=== PATIENT | male | born 1940 | race Caucasian/White ===

== ENCOUNTER 2017-10-14 05:22 | Emergency (ER) | payer OTHER ==
[~2017-10-14] VITALS: Ht 170.2 cm; Wt 88.5 kg
[2017-10-14 05:27] VITALS: BP_SYST 192
[2017-10-14] MEDS ORDERED: LIDOCAINE VISCOUS 2%, 15 ML UDC ONE (05:47)
[2017-10-14] MEDS ORDERED: LIDOCAINE VISCOUS 2%, 15 ML UDC MM ONE (06:45)
[2017-10-14 07:55] VITALS: BP_SYST 125
== END 2017-10-14 07:55 | disposition home or self-care (01) ==
LOC: SED 05:22
DX: N99.81 Other intraoperative complications of genitourinary system (principal)
CPT/HCPCS: 51702; 99284; J2001

== ENCOUNTER 2020-05-05 10:03 | Outpatient (CLI) | payer OTHER ==
[2020-05-05] MEDS ORDERED: BARIUM SULFATE 135 ML SUSP.RECON (E-Z-HD) PO ONE (11:04)
== END 2020-05-05 21:35 | disposition home or self-care (01) ==
LOC: SRD 10:03
DX: R13.10 Dysphagia, unspecified (principal)
CPT/HCPCS: 74220-TC

== ENCOUNTER 2022-12-28 08:42 | Inpatient (IN) | payer OTHER ==
[~2022-12-28] VITALS: Ht 165.1 cm; Wt 81.6 kg
[2022-12-28 08:45] VITALS: BP_SYST 118
[2022-12-28] MEDS ORDERED: cefTRIAXone 1 GM IVPB PREMIX 50 ML IV ONE (09:45)
[2022-12-28] MEDS ORDERED: NACL 0.9% 1,000 ML IV ONE ×2 (09:45→13:30)
[2022-12-28] MEDS ORDERED: ACETAMINOPHEN 500 MG TABLET PO ONE (09:45)
[2022-12-28 09:50] LABS: BILIRUBIN,URINE NEGATIVE (NEGATIVE); BLOOD, URINE 1+ (NEGATIVE); COLOR,URINE YELLOW (YELLOW); GLUCOSE,URINE NEGATIVE (NEGATIVE); KETONES,URINE NEGATIVE (NEGATIVE); LEUKOCYTE ESTERASE ,URINE TRACE (NEGATIVE); NITRITE, URINE NEGATIVE (NEGATIVE); PROTEIN URINE NEGATIVE (NEGATIVE); UROBILINOGEN,URINE 0.2 (0.2-1.0)
[2022-12-28 09:55] LABS: CLARITY/URINE SLIGHTLY HAZY (CLEAR)
[2022-12-28 09:58] LABS: BACTERIA,URINE FEW /HPF (None Seen); WBC,URINE 0-3 /HPF (0-3)
[2022-12-28 10:00] LABS: BASOPHILS % (AUTO) 0.2 % (0.0-2.0); HEMATOCRIT 42.2 % (36-54); LYMPHOCYTES # (AUTO) 0.5 K/uL (1.0-5.5); MEAN CORPUSCULAR HEMOGLOBIN 30 pg (27-31); MEAN CORPUSCULAR HGB CONC 33 % (32-36); MEAN CORPUSCULAR VOLUME 90 fL (79.0-98.0); MONOCYTES # (AUTO) 0.8 K/uL (0.0-1.0); MONOCYTES % (AUTO) 6.7 % (1.7-9.3); NEUTROPHILS # (AUTO) 10.5 K/uL (1.8-7.7); NEUTROPHILS % (AUTO) 89.1 % (40.0-70.0); PLATELET COUNT (AUTO) 158 K/uL (130-430); RED BLOOD CELL COUNT(AUTO) 4.72 MIL/uL (4.2-6.2); RED CELL DISTRIBUTION WIDTH 15.1 % (9.0-15.0); WHITE BLOOD COUNT (AUTO) 11.8 K/uL (4.8-10.8)
[2022-12-28 10:18] LABS: ANION GAP 9 (5-15); CALCIUM 8.9 mg/dL (8.4-11.0); CHLORIDE 99 mmol/L (98-107); CREATININE 1.18 mg/dL (0.55-1.30); GLUCOSE 106 mg/dL (70-99); UREA NITROGEN, BLOOD 24 mg/dL (8-21)
[2022-12-28 10:24] LABS: ALANINE AMINOTRANSFERASE 14 U/L (12-78); ALBUMIN 3.6 g/dL (3.4-4.8); ASPARTATE AMINOTRANSFERASE 18 U/L (10-37); TOTAL BILIRUBIN 1.2 mg/dL (0.0-1.0)
[2022-12-28] MEDS ORDERED: ASPI-1155 PO (10:25)
[2022-12-28] MEDS ORDERED: LOSA1TAB40 PO (10:25)
[2022-12-28] MEDS ORDERED: ACETAMINOPHEN 500 MG TABLET PO PRN (14:15)
[2022-12-28] MEDS ORDERED: D5/0.45 NS 1,000 ML IV ONE (14:15)
[2022-12-28 16:00] VITALS: BP_SYST 125
[2022-12-28] MEDS ORDERED: ACETAMINOPHEN 325 MG TABLET PO PRN (16:15)
[2022-12-28] MEDS: ACETAMINOPHEN 325 MG TABLET PO PRN ×2 (16:19→22:05)
[2022-12-28] MEDS: NACL 0.9% 1,000 ML IV SCH (16:21)
[2022-12-28 20:37] VITALS: BP_SYST 163
[2022-12-28 20:42] VITALS: BP_SYST 133
[2022-12-28] MEDS ORDERED: LOSARTAN/HYDROCHLOROTHIAZIDE TAB (HYZAAR 50-12.5 MG) PO ONE (22:30)
[2022-12-28] MEDS ORDERED: LOSARTAN POTASSIUM 50 MG TABLET (COZAAR) PO ONE (22:45)
[2022-12-28] MEDS ORDERED: HYDROCHLOROTHIAZIDE 12.5 MG CAPSULE (HCTZ) PO ONE (22:45)
[2022-12-29 00:27] VITALS: BP_SYST 150
[2022-12-29] MEDS: NACL 0.9% 1,000 ML IV SCH ×3 (02:20→22:15)
[2022-12-29] MEDS: ACETAMINOPHEN 325 MG TABLET PO PRN (06:17)
[2022-12-29 06:25] LABS: BASOPHILS % (AUTO) 0.2 % (0.0-2.0); HEMATOCRIT 40.1 % (36-54); HEMOGLOBIN 13.4 g/dL (14.0-18.0); LYMPHOCYTES # (AUTO) 0.7 K/uL (1.0-5.5); LYMPHOCYTES % (AUTO) 4.3 % (20.5-51.5); MEAN CORPUSCULAR HEMOGLOBIN 30 pg (27-31); MEAN CORPUSCULAR HGB CONC 33 % (32-36); MEAN CORPUSCULAR VOLUME 90 fL (79.0-98.0); MONOCYTES # (AUTO) 1.1 K/uL (0.0-1.0); MONOCYTES % (AUTO) 7.4 % (1.7-9.3); NEUTROPHILS # (AUTO) 13.7 K/uL (1.8-7.7); NEUTROPHILS % (AUTO) 88.1 % (40.0-70.0); PLATELET COUNT (AUTO) 135 K/uL (130-430); RED BLOOD CELL COUNT(AUTO) 4.48 MIL/uL (4.2-6.2); WHITE BLOOD COUNT (AUTO) 15.5 K/uL (4.8-10.8)
[2022-12-29 08:06] LABS: % FREE PSA 25.8 % (.); FREE PSA 0.31 ng/mL; PROSTATE SPECIFIC AG TOTAL 1.2 ng/mL (0.0-4.0)
[2022-12-29 08:54] VITALS: BP_SYST 125
[2022-12-29] MEDS ORDERED: cefTRIAXone 1 GM in D5W 50 ML IV SCH (09:00)
[2022-12-29] MEDS ORDERED: CEFEPIME 0.5 GM in D5W 50 ML IV ONE (10:45)
[2022-12-29 11:02] VITALS: BP_SYST 133
[2022-12-29] MEDS ORDERED: VANCOMYCIN HCL 1,000 MG in NS 250 ML IV SCH (13:00)
[2022-12-29 15:40] VITALS: BP_SYST 126
[2022-12-29] MEDS: CEFEPIME 0.5 GM in D5W 50 ML IV SCH (21:00)
[2022-12-30] VITALS (7 sets, daily range): BP systolic 129–158
[2022-12-30] MEDS: CEFEPIME 0.5 GM in D5W 50 ML IV SCH ×2 (11:12→20:15)
[2022-12-30] MEDS ORDERED: FUROSEMIDE 40 MG/4 ML VIAL IVP ONE (12:15)
[2022-12-30 12:27] LABS: BASOPHILS % (AUTO) 0.2 % (0.0-2.0); EOSINOPHILS % (AUTO) 0.1 % (0.0-4.0); HEMATOCRIT 37.8 % (36-54); HEMOGLOBIN 12.5 g/dL (14.0-18.0); LYMPHOCYTES # (AUTO) 0.8 K/uL (1.0-5.5); LYMPHOCYTES % (AUTO) 6.8 % (20.5-51.5); MEAN CORPUSCULAR HEMOGLOBIN 30 pg (27-31); MEAN CORPUSCULAR HGB CONC 33 % (32-36); MEAN CORPUSCULAR VOLUME 89 fL (79.0-98.0); MONOCYTES # (AUTO) 1.3 K/uL (0.0-1.0); MONOCYTES % (AUTO) 10.6 % (1.7-9.3); NEUTROPHILS % (AUTO) 82.3 % (40.0-70.0); PLATELET COUNT (AUTO) 130 K/uL (130-430); RED BLOOD CELL COUNT(AUTO) 4.23 MIL/uL (4.2-6.2); RED CELL DISTRIBUTION WIDTH 15.9 % (9.0-15.0); WHITE BLOOD COUNT (AUTO) 12.1 K/uL (4.8-10.8)
[2022-12-30] MEDS ORDERED: DOCUSATE SODIUM 100 MG CAPSULE PO ONE (12:30)
[2022-12-30] MEDS: DOCUSATE SODIUM 100 MG CAPSULE PO SCH (20:15)
[2022-12-31 00:41] VITALS: BP_SYST 131
[2022-12-31 08:06] LABS: BASOPHILS % (AUTO) 0.2 % (0.0-2.0); EOSINOPHILS # (AUTO) 0.1 K/uL (0.0-0.4); EOSINOPHILS % (AUTO) 1.2 % (0.0-4.0); HEMATOCRIT 36.5 % (36-54); HEMOGLOBIN 12.2 g/dL (14.0-18.0); LYMPHOCYTES % (AUTO) 10.5 % (20.5-51.5); MEAN CORPUSCULAR HEMOGLOBIN 30 pg (27-31); MEAN CORPUSCULAR HGB CONC 33 % (32-36); MEAN CORPUSCULAR VOLUME 89 fL (79.0-98.0); MONOCYTES # (AUTO) 0.8 K/uL (0.0-1.0); MONOCYTES % (AUTO) 8.2 % (1.7-9.3); NEUTROPHILS # (AUTO) 7.7 K/uL (1.8-7.7); NEUTROPHILS % (AUTO) 79.9 % (40.0-70.0); PLATELET COUNT (AUTO) 141 K/uL (130-430); RED BLOOD CELL COUNT(AUTO) 4.11 MIL/uL (4.2-6.2); RED CELL DISTRIBUTION WIDTH 15.1 % (9.0-15.0); WHITE BLOOD COUNT (AUTO) 9.7 K/uL (4.8-10.8)
[2022-12-31 08:06] LABS: FREE PSA 0.19 ng/mL
[2022-12-31 08:15] LABS: ANION GAP 6 (5-15); CALCIUM 8.5 mg/dL (8.4-11.0); CHLORIDE 105 mmol/L (98-107); CREATININE 1.03 mg/dL (0.55-1.30); GLUCOSE 96 mg/dL (70-99); UREA NITROGEN, BLOOD 30 mg/dL (8-21)
[2022-12-31 08:38] VITALS: BP_SYST 130
[2022-12-31] MEDS: DOCUSATE SODIUM 100 MG CAPSULE PO SCH ×2 (10:13→20:04)
[2022-12-31] MEDS: CEFEPIME 0.5 GM in D5W 50 ML IV SCH ×2 (10:14→20:04)
[2022-12-31] MEDS: POLYETHYLENE GLYCOL 3350, 17 GM/ POWD.PACK PO SCH (10:15)
[2022-12-31 11:27] VITALS: BP_SYST 122
[2022-12-31 15:36] VITALS: BP_SYST 120
[2022-12-31 20:00] VITALS: BP_SYST 128
[2022-12-31] MEDS: ACETAMINOPHEN 325 MG TABLET PO PRN ×2 (20:02→20:03)
[2023-01-01] VITALS: BP_SYST 124
[2023-01-01 07:21] LABS: ANION GAP 4 (5-15); BASOPHILS % (AUTO) 0.4 % (0.0-2.0); C-REACTIVE PROTEIN QUANT 15.5 mg/dL (0-0.5); CALCIUM 8.9 mg/dL (8.4-11.0); CHLORIDE 107 mmol/L (98-107); CREATININE 0.98 mg/dL (0.55-1.30); EOSINOPHILS # (AUTO) 0.2 K/uL (0.0-0.4); EOSINOPHILS % (AUTO) 3.4 % (0.0-4.0); GLUCOSE 102 mg/dL (70-99); HEMATOCRIT 34.7 % (36-54); HEMOGLOBIN 11.8 g/dL (14.0-18.0); LYMPHOCYTES # (AUTO) 1.2 K/uL (1.0-5.5); LYMPHOCYTES % (AUTO) 18.9 % (20.5-51.5); MEAN CORPUSCULAR HEMOGLOBIN 30 pg (27-31); MEAN CORPUSCULAR HGB CONC 34 % (32-36); MEAN CORPUSCULAR VOLUME 89 fL (79.0-98.0); MONOCYTES # (AUTO) 0.6 K/uL (0.0-1.0); MONOCYTES % (AUTO) 9.5 % (1.7-9.3); NEUTROPHILS # (AUTO) 4.5 K/uL (1.8-7.7); NEUTROPHILS % (AUTO) 67.8 % (40.0-70.0); PLATELET COUNT (AUTO) 164 K/uL (130-430); RED BLOOD CELL COUNT(AUTO) 3.92 MIL/uL (4.2-6.2); RED CELL DISTRIBUTION WIDTH 15.5 % (9.0-15.0); UREA NITROGEN, BLOOD 32 mg/dL (8-21)
[2023-01-01 07:46] LABS: WHITE BLOOD COUNT (AUTO) 6.6 K/uL (4.8-10.8)
[2023-01-01 08:00] VITALS: BP_SYST 152
[2023-01-01 08:09] LABS: ERYTHROCYTE SEDIMENTATION RATE 51 MM/HR (0-15)
[2023-01-01] MEDS: CEFEPIME 0.5 GM in D5W 50 ML IV SCH (08:49)
[2023-01-01] MEDS: DOCUSATE SODIUM 100 MG CAPSULE PO SCH (08:52)
[2023-01-01] MEDS: POLYETHYLENE GLYCOL 3350, 17 GM/ POWD.PACK PO SCH (08:53)
[2023-01-01] MEDS: ACETAMINOPHEN 325 MG TABLET PO PRN (08:53)
[2023-01-01] MEDS ORDERED: LEVO-62 PO (12:16)
[2023-01-01 12:57] VITALS: BP_SYST 139
== END 2023-01-01 14:05 | disposition home health service (06) | DRG 872 ==
LOC: SED 08:42 → SMU 14:16 → STU 20:25 → SMU 12-31 04:28
PROVIDERS: ADMIT Specialist; ATTEND Specialist
DX: A41.9 Sepsis, unspecified organism (principal); N39.0 Urinary tract infection, site not specified; I10 Essential (primary) hypertension; R73.9 Hyperglycemia, unspecified; D64.9 Anemia, unspecified; Z20.822 Contact with and (suspected) exposure to COVID-19; R53.81 Other malaise; Z79.82 Long term (current) use of aspirin; Z79.899 Other long term (current) drug therapy; Z87.891 Personal history of nicotine dependence; Z85.51 Personal history of malignant neoplasm of bladder; Z87.440 Personal history of urinary (tract) infections
CPT/HCPCS: 36415; 70450-TC; 71045; 76376; 76770; 80048; 80053; 81000; 83605; 84153; 84484; 85025; 85651-TC; 86140; 87040; 87086; 92610-GN; 93005; 96361; 96365; 97116-GP; 97530-GP; 99285; G0378; J0692; J0696; J1940; J3370; J7050; J7060